=== PATIENT | female | born 1970 | race Caucasian/White ===

== ENCOUNTER 2017-07-31 01:22 | Emergency (ER) | payer OTHER ==
[~2017-07-31] VITALS: Ht 160 cm; Wt 103.4 kg
[~2017-07-31 01:22] MED LIST: BACTRIM DS 8001 TA1 PO; CATAFLAM50 MG PO; CLINDAMYCIN HC300 MG PO; DIFLUCAN150 MG PO; FLAGYL500 MG PO; FLEXERIL5 MG PO; HYDROCODONE BIT1 T11 PO; LANTUS100 U/ML SC; LEVOTHYROXINE0.05 M1 PO; LEVOTHYROXINE0.05 MG PO; MOTRIN800 MG PO; NOVOLOG1 UNIT/0.0; NOVOLOG10 ML IV; OMEPRAZOLE DR20 M1 PO
[2017-07-31 01:59] LABS: BILIRUBIN NEGATIVE (NEGATIVE); BLOOD NEGATIVE (NEGATIVE); CLARITY SL CLOUDY (CLEAR); COLOR YELLOW (YELLOW); GLUCOSE NEGATIVE (NEGATIVE); KETONE TRACE (NEGATIVE); LEUKO ESTERASE TRACE (NEGATIVE); NITRITE NEGATIVE (NEGATIVE); PH 5.5 (5.0-9.0)
[2017-07-31 02:07] LABS: BACTERIA 2+; EPITHELIAL CELLS 25-30
[2017-07-31 03:12] VITALS: BP 145/74
[2017-07-31 04:08] LABS: BASO % 0.6 % (0.0-1.0); EOS # 0.1 10*3/uL (0.0-0.4); EOS % 1.9 % (1.0-4.0); HEMATOCRIT 37.4 % (37.0-47.0); HEMOGLOBIN 12.7 g/dl (12.0-16.0); LYMPH # 2.5 10*3/uL (1.3-4.4); LYMPH % 34.4 % (27.0-41.0); MEAN CORPUSCULAR HGB 29.2 pg (27.0-31.0); MEAN PLATELET VOLUME 10.7 fl (9.6-12.3); MONO # 0.6 10*3/uL (0.1-1.0); MONO % 8.3 % (3.0-9.0); NEUT # 3.9 10*3/uL (2.3-7.9); NEUT % 54.5 % (47.0-73.0); PLATELET COUNT AUTOMATED 232 10*3/uL (130-400); RED BLOOD COUNT 4.35 10*6/uL (4.10-5.10); RED CELL DISTRI WIDTH 13.5 % (0-14.5); WHITE BLOOD COUNT 7.2 10*3/uL (4.8-10.8)
[2017-07-31 04:19] LABS: BUN 20 mg/dl (7-24); CHLORIDE 107 mmol/L (98-107); CREATININE 0.71 mg/dL (0.55-1.02); SODIUM 143 mmol/L (136-145)
[2017-07-31 04:20] LABS: TROPONIN I < 0.015 ng/ml (<0.045)
[2017-07-31] MEDS ORDERED: PEPCID20 MG PO (04:35)
[2017-07-31] MEDS ORDERED: ULTRAM50 MG PO (04:35)
== END 2017-07-31 04:56 | disposition home or self-care (01) ==
LOC: ED 01:22
PROVIDERS: Emergency Medicine Emergency Medical Services
DX: S30.0XXA Contusion of lower back and pelvis, initial encounter (principal); R55 Syncope and collapse; K21.9 Gastro-esophageal reflux disease without esophagitis; Z79.4 Long term (current) use of insulin; Z79.899 Other long term (current) drug therapy; W19.XXXA Unspecified fall, initial encounter; Y93.89 Activity, other specified; Y92.89 Other specified places as the place of occurrence of the external cause; Y99.8 Other external cause status

== ENCOUNTER 2018-01-18 01:34 | Emergency (ER) | payer OTHER ==
[~2018-01-18] VITALS: Ht 160 cm; Wt 108.9 kg
[~2018-01-18 01:34] MED LIST changes: +PEPCID20 MG PO; +ULTRAM50 MG PO
[2018-01-18] MEDS ORDERED: CEPHALEXIN500 M1 PO (01:58)
[2018-01-18] MEDS ORDERED: DIFLUCAN150 MG PO (01:58)
[2018-01-18] MEDS ORDERED: SEPTDS PO (01:58)
[2018-01-18 02:08] VITALS: BP 140/71
== END 2018-01-18 02:29 | disposition home or self-care (01) ==
LOC: ED 01:34
DX: L02.412 Cutaneous abscess of left axilla (principal); K21.9 Gastro-esophageal reflux disease without esophagitis; Z79.4 Long term (current) use of insulin

== ENCOUNTER 2018-04-03 21:22 | Emergency (ER) | payer OTHER ==
[~2018-04-03] VITALS: Ht 160 cm; Wt 104.3 kg
[~2018-04-03 21:22] MED LIST changes: +CEPHALEXIN500 M1 PO; +SEPTDS PO
[2018-04-03 21:23] VITALS: BP 118/52
== END 2018-04-03 23:00 | disposition left against medical advice (07) ==
LOC: ED 21:22
DX: M79.672 Pain in left foot (principal); K21.9 Gastro-esophageal reflux disease without esophagitis; E11.9 Type 2 diabetes mellitus without complications; Z79.899 Other long term (current) drug therapy; Z79.4 Long term (current) use of insulin

== ENCOUNTER 2019-08-23 20:25 | Inpatient (IN) | payer OTHER ==
[~2019-08-23] VITALS: Ht 160 cm; Wt 97.5 kg
[2019-08-23 20:34] VITALS: BP 115/61
[2019-08-23 20:56] LABS: BASO % 0.2 % (0.0-1.0); EOS % 0.9 % (1.0-4.0); HEMATOCRIT 33.1 % (37.0-47.0); HEMOGLOBIN 11.2 g/dl (12.0-16.0); LYMPH # 0.5 10*3/uL (1.3-4.4); LYMPH % 12.5 % (27.0-41.0); MEAN CELL VOLUME 83.8 fl (81.0-99.0); MEAN CORPUSCULAR HGB 28.4 pg (27.0-31.0); MEAN CORPUSCULAR HGB CONC 33.8 g/dl (33.0-37.0); MEAN PLATELET VOLUME 9.8 fl (9.6-12.3); MONO # 0.5 10*3/uL (0.1-1.0); MONO % 10.4 % (3.0-9.0); NEUT # 3.3 10*3/uL (2.3-7.9); NEUT % 75.8 % (47.0-73.0); PLATELET COUNT AUTOMATED 186 10*3/uL (130-400); RED BLOOD COUNT 3.95 10*6/uL (4.10-5.10); RED CELL DISTRI WIDTH 13.6 % (0-14.5); WHITE BLOOD COUNT 4.3 10*3/uL (4.8-10.8)
[2019-08-23 21:00] VITALS: BP 119/53
[2019-08-23 21:07] LABS: ACT PARTIAL THROMBO TIME 25.3 SECONDS (20.0-32.1)
[2019-08-23 21:11] LABS: ALBUMIN 3.3 gm/dl (3.1-4.5); ALKALINE PHOSPHATASE 45 U/L (45-117); BUN 13 mg/dl (7-24); CHLORIDE 109 mmol/L (98-107); CREATININE 0.73 mg/dL (0.55-1.02); POTASSIUM 3.6 mmol/L (3.5-5.1); SGOT/AST 16 IU/L (3-35); SGPT/ALT 23 U/L (12-78); SODIUM 138 mmol/L (136-145); TOTAL PROTEIN 6.3 gm/dL (6.4-8.2)
[2019-08-23 21:16] LABS: TROPONIN I < 0.015 ng/ml (<0.045)
[2019-08-23 21:25] VITALS: BP 122/53
[2019-08-23 21:40] VITALS: BP 123/60
[2019-08-23 22:25] VITALS: BP 122/54
--- NOTE | 2019-08-23 22:25 | NUR ---
A 49, admitted to , under the services of ANTHONY Regalado DO with a diagnosis of CHEST PAIN. Chief complaint is CHEST PAIN. Patient arrived via bed from ER. Monitor applied. Initial assessment completed. Vital signs taken and recorded. ANTHONY REGALADO DO notified of admission to the unit. Orders received. See assessment for past medical history, medications and allergies. Patient and/or family oriented to unit. [facility] visitation policy reviewed. Clothing/patient valuable form completed. DAVID BANKS
--- NOTE | 2019-08-23 23:05 | NUR ---
DR. BENAVIDEZ NOTIFIED OF VERIFIED HOME MEDICATIONS
--- NOTE | 2019-08-23 23:16 | NUR ---
PT MEDICATED WITH NORCO PER ORDER FOR COMPLAINT OF 9/10 HEADACHE. WILL MONITOR EFFECTIVENESS.
--- NOTE | 2019-08-24 00:42 | NUR ---
PER PT, NORCO EFFECTIVE FOR HEADACHE.
--- NOTE | 2019-08-24 02:00 | NUR ---
24 HR chart check completed.
--- NOTE | 2019-08-24 02:16 | NUR ---
CONSULT CALLED TO DR. SHUKLA'S ANSWERING SERVICE.
[2019-08-24 06:23] LABS: BUN 10 mg/dl (7-24); CHLORIDE 111 mmol/L (98-107); CHOLESTEROL 125 mg/dL (<200); CREATININE 0.68 mg/dL (0.55-1.02); FREE T4 0.76 ng/dl (0.76-1.46); HDL CHOLESTEROL 34 mg/dl (40-60); LDL CHOLESTEROL 77 mg/dL (9-159); PHOSPHOROUS 2.9 mg/dL (2.5-4.9); POTASSIUM 3.5 mmol/L (3.5-5.1); SODIUM 141 mmol/L (136-145); TRIGLYCERIDES 69 mg/dl (<150); VLDL CHOLESTEROL 14 mg/dL (6-40)
[2019-08-24 06:28] LABS: BASO % 0.3 % (0.0-1.0); EOS % 1.1 % (1.0-4.0); HEMOGLOBIN 11.7 g/dl (12.0-16.0); LYMPH # 0.9 10*3/uL (1.3-4.4); LYMPH % 23.6 % (27.0-41.0); MEAN CELL VOLUME 84.7 fl (81.0-99.0); MEAN CORPUSCULAR HGB 28.3 pg (27.0-31.0); MEAN CORPUSCULAR HGB CONC 33.4 g/dl (33.0-37.0); MEAN PLATELET VOLUME 9.9 fl (9.6-12.3); MONO # 0.4 10*3/uL (0.1-1.0); MONO % 11.4 % (3.0-9.0); NEUT # 2.3 10*3/uL (2.3-7.9); NEUT % 63.6 % (47.0-73.0); PLATELET COUNT AUTOMATED 186 10*3/uL (130-400); RED BLOOD COUNT 4.13 10*6/uL (4.10-5.10); RED CELL DISTRI WIDTH 13.6 % (0-14.5); WHITE BLOOD COUNT 3.6 10*3/uL (4.8-10.8)
[2019-08-24 07:47] LABS: VITAMIN D, 25-HYDROXY 14.6 ng/mL (30-100)
--- NOTE | 2019-08-24 09:00 | NUR ---
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 Patient states lives at home with alone. There are few steps in the home. Physician: guevara [facility]ins [facility] Pharmacy: mail Home health services: none Patient's level of ADLs: INDEPENDENT Patient has working utilities: all working DME: none Follow-up physician's appointment after d/c: will be made by hospitalist nurse director upon discharge Does patient want to access PORTAL?: no Discharge plan discussed with patient, she lives at home alone, she is independent in adls and ambulation, works, drives, she will return home when medically stable and denies any home needs. ROSETTE JOSHUA
--- NOTE | 2019-08-24 10:20 | NUR ---
INFORMED SIGNED CONSENT OBTAINED FOR CGXT WITH DR BOWLES RESTING EKG NSR HR 81 WITH T WAVE INVERSION IN AVR, AVL, V1-V2, PTS BP 122/78 IN SUPINE POSTION. STANDING HR OF 88 BP 120/62. PT COMPLETED 7:35 OF A WIN PROTOCOL WITH PT COMPLETING 1:35 OF STAGE III AT 3.4 MPH AND A 14% GRADE. ISOLATED PVC NOTED, NON DIAGNOSTIC ST CHANGES SEEN. TEST TERMINATED DUE TO FATIGUE. PT REACHED A PEAK HR OF 147 WHICH REPRESNTS 85% OF PREDICTED MAXIMUM AND A PEAK BP OF 144/60. LAST RECOVERY OF 104 BP 120/54. PT IN STABLE CONDITOIN, AWAITING NUCLEAR IMAGES.
[2019-08-24 12:00] VITALS: BP 119/60
--- NOTE | 2019-08-24 12:39 | NUR ---
PT STATES SHE NEEDS TO BE DISCHARGED SOON BECAUSE SHE WILL BE WITHOUT A RIDE AND HAS TO WORK AT 1500. DR DUNCAN STATES THAT HE IS UNABLE TO RELEASE HER UNTIL THE STRESS TEST RESULTS COME BACK. WILL RELAY TO PT.
--- NOTE | 2019-08-24 14:14 | NUR ---
HEP LOCK RMEOVED. PT TOLERATED WELL. TELELPACK REMOVED AND PLACED INTO YELLOW BIN AT NURSES STATION.
--- NOTE | 2019-08-24 14:15 | NUR ---
Discharge instructions reviewed with patient/family. Patient receptive and verbalizes understanding. Follow-up care arranged. Written instructions given to patient/family. SHAWN TY
== END 2019-08-24 14:15 | disposition home or self-care (01) | DRG 313 ==
LOC: ED 20:25 → 4E 21:47 → EDHOLD 21:47 → 4E 22:02
PROVIDERS: Emergency Medicine; Internal Medicine; ADMIT Internal Medicine
PROC: 3E073KZ Introduction of Other Diagnostic Substance into Coronary Artery, Percutaneous Approach (ICD-10-PCS; principal; 2019-08-24)
PROC: 4A02XM4 Measurement of Cardiac Total Activity, External Approach (ICD-10-PCS; principal; 2019-08-24)
DX: R07.89 Other chest pain (principal); D64.9 Anemia, unspecified; K21.9 Gastro-esophageal reflux disease without esophagitis; D72.819 Decreased white blood cell count, unspecified; E03.9 Hypothyroidism, unspecified; E87.8 Other disorders of electrolyte and fluid balance, not elsewhere classified; E11.65 Type 2 diabetes mellitus with hyperglycemia; I44.4 Left anterior fascicular block; Z82.49 Family history of ischemic heart disease and other diseases of the circulatory system; Z79.4 Long term (current) use of insulin; Z83.3 Family history of diabetes mellitus

== ENCOUNTER 2019-11-01 09:58 | Emergency (ER) | payer OTHER ==
[~2019-11-01] VITALS: Ht 160 cm; Wt 99.3 kg
[2019-11-01 10:02] VITALS: BP 125/53
[2019-11-01 10:36] LABS: BASO % 0.3 % (0.0-1.0); HEMATOCRIT 38.2 % (37.0-47.0); HEMOGLOBIN 12.5 g/dl (12.0-16.0); LYMPH % 31.6 % (27.0-41.0); MEAN CELL VOLUME 85.7 fl (81.0-99.0); MEAN CORPUSCULAR HGB CONC 32.7 g/dl (33.0-37.0); MEAN PLATELET VOLUME 10.2 fl (9.6-12.3); MONO # 0.5 10*3/uL (0.1-1.0); MONO % 14.4 % (3.0-9.0); NEUT # 1.7 10*3/uL (2.3-7.9); NEUT % 53.4 % (47.0-73.0); PLATELET COUNT AUTOMATED 158 10*3/uL (130-400); RED BLOOD COUNT 4.46 10*6/uL (4.10-5.10); WHITE BLOOD COUNT 3.2 10*3/uL (4.8-10.8)
[2019-11-01 10:56] LABS: ALBUMIN 3.2 gm/dl (3.1-4.5); ALKALINE PHOSPHATASE 87 U/L (45-117); BUN 11 mg/dl (7-24); CHLORIDE 101 mmol/L (98-107); CREATININE 0.86 mg/dL (0.55-1.02); POTASSIUM 3.6 mmol/L (3.5-5.1); SGOT/AST 41 IU/L (3-35); SGPT/ALT 53 U/L (12-78); SODIUM 134 mmol/L (136-145)
[2019-11-01 11:02] LABS: TROPONIN I < 0.015 ng/ml (<0.045)
== END 2019-11-01 12:16 | disposition home or self-care (01) ==
LOC: ED 09:58
PROVIDERS: Nurse Practitioner Family
DX: J10.1 Influenza due to other identified influenza virus with other respiratory manifestations (principal); Z79.899 Other long term (current) drug therapy

== ENCOUNTER 2021-02-01 01:56 | Emergency (ER) | payer OTHER ==
[~2021-02-01] VITALS: Ht 167.6 cm; Wt 94.3 kg
[2021-02-01 02:02] VITALS: BP 146/57
[2021-02-01] MEDS ORDERED: SEPTDS PO (03:06)
== END 2021-02-01 03:11 | disposition home or self-care (01) ==
LOC: ED 01:56
DX: E11.621 Type 2 diabetes mellitus with foot ulcer (principal); L97.522 Non-pressure chronic ulcer of other part of left foot with fat layer exposed; Z79.4 Long term (current) use of insulin; Z79.899 Other long term (current) drug therapy

== ENCOUNTER 2021-10-20 10:06 | Emergency (ER) | payer OTHER ==
[~2021-10-20] VITALS: Ht 160 cm; Wt 95.3 kg
[~2021-10-20 10:06] MED LIST changes: +LIPITOR10 MG PO; +LISINOPRIL5 MG PO
[2021-10-20 10:36] VITALS: BP 118/59
[2021-10-20] MEDS ORDERED: IBUPROFEN600 MG PO (14:31)
== END 2021-10-20 14:37 | disposition home or self-care (01) ==
LOC: ED 10:06
DX: M71.22 Synovial cyst of popliteal space [Baker], left knee (principal); Z79.899 Other long term (current) drug therapy; Z98.890 Other specified postprocedural states

== ENCOUNTER 2023-07-21 19:44 | Emergency (ER) | payer OTHER ==
[~2023-07-21] VITALS: Ht 160 cm; Wt 101.2 kg
[~2023-07-21 19:44] MED LIST changes: +IBUPROFEN600 MG PO
[2023-07-21 19:55] VITALS: BP 133/49
[2023-07-21] MEDS ORDERED: TRULICITY1.5 MG/0.5 SC (19:57)
[2023-07-21] MEDS ORDERED: CYMBALTA60 MG PO (19:59)
[2023-07-21] MEDS ORDERED: HYDROCODONE-AC1 EAC1 PO (20:00)
[2023-07-21 20:16] LABS: BASO % 0.2 % (0.0-1.0); EOS # 0.1 10*3/uL (0.0-0.4); EOS % 0.9 % (1.0-4.0); HEMATOCRIT 35.8 % (37.0-47.0); LYMPH # 1.8 10*3/uL (1.3-4.4); LYMPH % 18.2 % (27.0-41.0); MEAN CELL VOLUME 83.3 fl (81.0-99.0); MEAN CORPUSCULAR HGB 27.7 pg (27.0-31.0); MEAN CORPUSCULAR HGB CONC 33.2 g/dl (33.0-37.0); MEAN PLATELET VOLUME 10.2 fl (9.6-12.3); MONO # 0.7 10*3/uL (0.1-1.0); MONO % 7.4 % (3.0-9.0); PLATELET COUNT AUTOMATED 235 10*3/uL (130-400); RED CELL DISTRI WIDTH 12.7 % (0-14.5); WHITE BLOOD COUNT 9.6 10*3/uL (4.8-10.8)
[2023-07-21 20:26] LABS: BILIRUBIN Negative (Negative); BLOOD 2+ (Negative); CLARITY Turbid (Clear); COLOR Yellow (Yellow); GLUCOSE Negative (Negative); KETONE Negative (Negative); LEUKO ESTERASE 3+ (Negative); NITRITE Positive (Negative); PH 5.5 (4.5-8.0); SPECIFIC GRAVITY 1.015 (1.001-1.030)
[2023-07-21 20:38] LABS: WBC TNTC wbc/hpf (0-5)
[2023-07-21 20:42] LABS: ALKALINE PHOSPHATASE 86 U/L (46-116); BUN 14 mg/dl (9-23); CHLORIDE 105 mmol/L (98-107); POTASSIUM 4.4 mmol/L (3.4-5.1); SGPT/ALT 18 U/L (5-49); TOTAL PROTEIN 6.6 gm/dL (6.0-8.0)
[2023-07-21] MEDS ORDERED: CIPRO500 MG PO (20:49)
[2023-07-21] MEDS ORDERED: FLUCONAZOLE100 MG PO (22:29)
== END 2023-07-21 22:29 | disposition home or self-care (01) ==
LOC: ED 19:44
PROVIDERS: Nurse Practitioner Family
DX: N39.0 Urinary tract infection, site not specified (principal); Z91.041 Radiographic dye allergy status; Z79.4 Long term (current) use of insulin; Z79.899 Other long term (current) drug therapy; Z98.890 Other specified postprocedural states; Z89.422 Acquired absence of other left toe(s)